=== PATIENT | male | born 1990 | race Asian ===

== ENCOUNTER 2016-10-10 14:25 | Inpatient (IN) | payer MEDICAID ==
[~2016-10-10] VITALS: Ht 172.7 cm; Wt 83.0 kg
[2016-10-10 15:03] LABS: BASOPHILS % (AUTO) 0.8 % (0.0-2.0); EOSINOPHILS % (AUTO) 2.3 % (1.0-6.0); HEMATOCRIT 45.1 % (36-46); LYMPHOCYTES # (AUTO) 2.3 K/uL (1.0-4.8); LYMPHOCYTES % (AUTO) 32.7 % (22.0-44.0); MEAN CORPUSCULAR HEMOGLOBIN 28.5 pg (26.0-34.0); MEAN CORPUSCULAR HGB CONC 33.2 G/dL (31.0-37.0); MEAN CORPUSCULAR VOLUME 86 fL (80-100); MONOCYTES # (AUTO) 0.6 K/uL (0.1-1.0); MONOCYTES % (AUTO) 8.9 % (2.0-9.0); NEUTROPHILS # (AUTO) 3.8 K/uL (1.8-7.7); NEUTROPHILS % (AUTO) 55.3 % (40.0-70.0); PLATELET COUNT (AUTO) 251 K/uL (150-450); RED BLOOD CELL COUNT(AUTO) 5.25 MIL/uL (4.00-5.20); RED CELL DISTRIBUTION WIDTH 14.1 % (11.5-14.5); WHITE BLOOD COUNT (AUTO) 6.9 K/uL (4.5-11.0)
[2016-10-10 15:22] LABS: ANION GAP 12 mmol/L (8-16); CALCIUM, TOTAL 8.9 mg/dL (8.8-10.5); CARBON DIOXIDE 26 mmol/L (22-29); CHLORIDE 104 mmol/L (98-107); CREATININE 0.89 mg/dL (0.60-1.30); GLOMERULAR FILTR. RATE CALC > 60 mL/min (>60); POTASSIUM 3.9 mmol/L (3.5-5.1); SODIUM SERUM 142 mmol/L (136-145); UREA NITROGEN, BLOOD 9 mg/dL (7-18)
[2016-10-10 15:30] LABS: ALANINE AMINOTRANSFERASE 29 U/L (12-78); ALBUMIN 3.6 g/dL (3.4-5.0); ASPARTATE AMINOTRANSFERASE 19 U/L (15-37); BILIRUBIN,TOTAL 0.4 mg/dL (0.1-1.0); TOTAL PROTEIN, SERUM 7.5 g/dL (6.4-8.2)
[2016-10-10] MEDS ORDERED: HALOPERIDOL 5 MG TABLET PO PRN (20:30)
[2016-10-11 02:01] VITALS: BP 143/84
[2016-10-11] MEDS ORDERED: PNEUMOCOCCAL VACCINE POLYVALENT 0.5 ML VIAL [PPSV23] IM ONE (05:30)
[2016-10-11 07:26] LABS: CHOL/HDL RATIO 3.4 (4.2-7.3)
[2016-10-11] MEDS: LISINOPRIL 5 MG TABLET PO SCH (09:00)
[2016-10-11 19:12] VITALS: BP 124/69
[2016-10-11] MEDS: OLANZapine 5 MG RAPDIS TABLET PO SCH (21:25)
[2016-10-12 08:57] VITALS: BP 121/71
[2016-10-12] MEDS: FLUoxetine HCL 20 MG CAPSULE PO SCH (10:56)
[2016-10-12] MEDS: LISINOPRIL 5 MG TABLET PO SCH (10:56)
[2016-10-12 16:30] VITALS: BP 113/65
[2016-10-12] MEDS: OLANZapine 5 MG RAPDIS TABLET PO SCH (22:31)
[2016-10-13] MEDS: LISINOPRIL 5 MG TABLET PO SCH (09:57)
[2016-10-13] MEDS: FLUoxetine HCL 20 MG CAPSULE PO SCH (09:57)
[2016-10-13 10:13] VITALS: BP 112/63
[2016-10-13] MEDS: LORazepam 2 MG TABLET PO PRN (16:15)
[2016-10-13 19:48] VITALS: BP 132/78
[2016-10-13] MEDS: OLANZapine 5 MG RAPDIS TABLET PO SCH (20:44)
[2016-10-14 08:00] VITALS: BP 136/87
[2016-10-14] MEDS: LISINOPRIL 5 MG TABLET PO SCH (09:00)
[2016-10-14] MEDS: FLUoxetine HCL 20 MG CAPSULE PO SCH (09:00)
[2016-10-14] MEDS: OLANZapine 5 MG RAPDIS TABLET PO SCH (20:56)
[2016-10-14] MEDS: ZOLPIDEM TARTRATE 10 MG TABLET PO PRN (21:17)
[2016-10-14 22:24] VITALS: BP 123/76
[2016-10-15] MEDS ORDERED: FLUoxetine HCL 20 MG CAPSULE PO SCH (09:00)
[2016-10-15] MEDS: LISINOPRIL 5 MG TABLET PO SCH (10:01)
[2016-10-15 10:04] VITALS: BP 146/99
[2016-10-15 16:56] VITALS: BP 121/80
[2016-10-15] MEDS: LORazepam 2 MG TABLET PO PRN ×2 (17:17→21:47)
[2016-10-15] MEDS: OLANZapine 10 MG RAPDIS TABLET PO SCH (20:26)
[2016-10-15] MEDS: ZOLPIDEM TARTRATE 10 MG TABLET PO PRN (21:47)
[2016-10-16] MEDS: FLUoxetine HCL 20 MG CAPSULE PO SCH (10:34)
[2016-10-16] MEDS: LISINOPRIL 5 MG TABLET PO SCH (10:34)
[2016-10-16 12:09] VITALS: BP 120/70
[2016-10-16] MEDS ORDERED: ACETAMINOPHEN 325 MG TABLET PO PRN (15:45)
[2016-10-16] MEDS ORDERED: IBUPROFEN 600 MG TABLET PO PRN (15:45)
[2016-10-16 16:06] VITALS: BP 139/89
[2016-10-16 17:06] VITALS: BP 128/77
[2016-10-16] MEDS: LORazepam 2 MG TABLET PO PRN (17:10)
[2016-10-16] MEDS: OLANZapine 10 MG RAPDIS TABLET PO SCH (20:38)
[2016-10-17] MEDS: FLUoxetine HCL 20 MG CAPSULE PO SCH (08:25)
[2016-10-17] MEDS: LISINOPRIL 5 MG TABLET PO SCH (08:25)
[2016-10-17 08:48] VITALS: BP 140/92
[2016-10-17 20:19] VITALS: BP 156/90
[2016-10-17] MEDS: OLANZapine 10 MG RAPDIS TABLET PO SCH (20:27)
[2016-10-17] MEDS: ZOLPIDEM TARTRATE 10 MG TABLET PO PRN (20:27)
[2016-10-18 08:37] VITALS: BP 110/74
[2016-10-18] MEDS: FLUoxetine HCL 20 MG CAPSULE PO SCH (10:06)
[2016-10-18] MEDS: LISINOPRIL 5 MG TABLET PO SCH (10:06)
[2016-10-18] MEDS: LORazepam 2 MG TABLET PO PRN ×2 (13:30→18:14)
[2016-10-18 17:57] VITALS: BP 134/85
[2016-10-18] MEDS: ZOLPIDEM TARTRATE 10 MG TABLET PO PRN (20:16)
[2016-10-18] MEDS: OLANZapine 10 MG RAPDIS TABLET PO SCH (20:16)
[2016-10-19 09:13] VITALS: BP 136/71
[2016-10-19] MEDS: LISINOPRIL 5 MG TABLET PO SCH (10:01)
[2016-10-19] MEDS: FLUoxetine HCL 20 MG CAPSULE PO SCH (10:01)
[2016-10-19] MEDS: LORazepam 2 MG TABLET PO PRN (10:17)
[2016-10-19] MEDS ORDERED: OLAN10TA6 PO (13:03)
[2016-10-19] MEDS ORDERED: FLUO-191 PO (13:03)
[2016-10-19] MEDS ORDERED: LISI-660 PO (13:03)
== END 2016-10-19 15:15 | disposition home or self-care (01) | DRG 750 ==
LOC: EMS 14:26 → 3EI 10-11 00:25
PROVIDERS: ADMIT Psychiatry & Neurology Psychiatry; ATTEND Psychiatry & Neurology Psychiatry
DX: F25.1 Schizoaffective disorder, depressive type (principal); R45.851 Suicidal ideations; Z59.0 Homelessness; I10 Essential (primary) hypertension; F64.9 Gender identity disorder, unspecified; F15.90 Other stimulant use, unspecified, uncomplicated; F41.9 Anxiety disorder, unspecified; Z28.21 Immunization not carried out because of patient refusal
CPT/HCPCS: 99285; G0480